=== PATIENT | female | born 1990 | race Caucasian/White ===

== ENCOUNTER 2024-05-10 19:30 | Inpatient (IN) | payer OTHER, SELFPAY ==
[2024-05-10 18:54] VITALS: BMI 37.9
[2024-05-10 19:25] LABS: ROM Internal Control Test YES-OK TO RESULT pt. (Internal QC)
[2024-05-10 19:27] LABS: ROM Patient Test POSITIVE (Negative); Record Kit Lot#, ROM+ K1866
[2024-05-10] MEDS: Lactated Ringers 1,000 ML 50 ML IV (19:45)
[2024-05-10 19:51] VITALS: BP 151/93; PULSE 90
--- NOTE | 2024-05-10 19:51 | PCM.HP.OB ---
HPI - General General Date of Admission: 05/10/24 Date of Service: 05/10/24 Chief Complaint: PPROM HPI Narrative JONO BRANDON, is a 33 1 para 0 at 35-6/7 weeks gestation presents complaining of spontaneous rupture membranes at 6 PM. Clear fluid. She denies any gross vaginal bleeding or leaking of fluid. She has had good movement. She denies any headache or visual changes. Some mild edema today. complicated to date by gestational diabetes class A2 she has been taking 10 units of insulin at night and blood sugars been well-controlled. She also has a history of anxiety and she is on Zoloft for this. Iron deficiency anemia has been treated with IV iron History of thrombocytosis and saw hematology for this, it was felt to be related to low iron Advanced maternal history Abnormal Pap smear with negative colposcopy biopsies during the Maternal obesity with BMI of 38 Allergies and medications reviewed. Social history: She denies any tobacco alcohol or drug use during the . PFSH [facility] Home Medications ?Medication ?Instructions ?Recorded ?Last Taken ?Type Lactobacillus acidophilus 10 100 mmu cells PO DAILY 05/10/24 05/09/24 22:00 History billion cell capsule (Probacap) 100 mmu cells ascorbate [id number]-fhr 1 ea PO DAILY 05/10/24 05/09/24 22:00 History 1,000 mg oral powder effervescent 1 ea pakt (Vit C(ascorb.calcium)(mv-mins)) aspirin 81 mg tablet,delayed 162 mg PO DAILY 05/10/24 05/09/24 22:00 History release 162 mg ferrous sulfate 325 mg (65 mg 325 mg PO DAILY 05/10/24 05/09/24 22:00 History iron) tablet (Feosol) 325 mg insulin NPH isoph U-100 human 100 10 unit subcut QPM 05/10/24 05/09/24 22:00 History unit/mL (3 mL) subcutaneous pen 10 units (Humulin N NPH U-100 Insulin KwikPen) vit no.95-ferrous 1 tab PO DAILY 05/10/24 05/09/24 21:00 History fumarate 28 mg-folic acid 800 mcg 1 TAB tablet ( Formula) sertraline 50 mg tablet (Zoloft) 50 mg PO DAILY 05/10/24 05/09/24 22:00 History 50 mg Allergy/AdvReac Type Severity Reaction Status Date / Time No Known Allergies Allergy Verified 05/10/24 18:44 NST FHR Rate Baby A Baseline: 150 Variability:: Moderate Accelerations:: 15 x 15 Decelerations:: None NST Reactive:: Yes FHR Category:: Category I Uterine Activity:: no regualr ctxs Vital Signs Vital Signs Vital Signs: Weight Weight: 100.3 kg Body Mass Index (BMI) 37.9 Physical Exam Narrative Cervix is 1.5 cm, 90% effaced, -2 station, gross rupture of membranes noted. Cervix is medium consistency and mid position patient has a history of a LEEP and does feel like she might have some scar tissue beyond of the cervix Const alert and no apparent distress General Appearance: cooperative HEENT normocephalic Resp normal respiratory effort Cardio regular rate GI soft to palpation GI Narrative: gravid, nontender, appropriate for gestational age Extremity no calf tenderness General Extremity: edema Skin no wounds Rashes: No rashes noted Psych activity/motor behavior normal Labs Labs Labs: No Data to Display Assessment & Plan (1) High risk , multigravida of advanced maternal age in third trimester: PLAN: High risk nullliparous patient with premature rupture of membranes. 36 weeks at midnight. Group B strep collected. Estimated weight is approximately 50th percentile by last ultrasound, pelvis clinically adequate to expect vaginal delivery. Will undergo Pitocin induction of labor. May use routine pain control measures as needed. Will monitor blood sugars. Will give half dose of insulin tonight at her normal time. (2) Maternal obesity syndrome in third trimester: (3) Nulliparity: (4) premature rupture of membranes (PPROM) delivered, current hospitalization: (5) 36 weeks gestation of : (6) Gestational diabetes requiring insulin:
[2024-05-10 20:17] LABS: Absolute Lymphocyte Count 4.92 X10^3/uL (0.83-4.51); Absolute Neutrophil Count 11.9 X10^3/uL (2.0-7.7); Basophil# 0.06 X10^3/uL; Basophil% 0.3 % (0-1); Eosinophil# 0.23 X10^3/uL; Eosinophils% 1.3 % (0-5); Hematocrit 38.9 % (37-47); Hemoglobin 13.9 g/dL (12.0-15.0); Lymphocyte # 4.92 X10^3/ul (0.83-4.51); Mean Corp Hgb Conc 35.7 g/dL (32-36); Mean Corpuscular Hgb 30.4 pg (27.0-32.0); Mean Corpuscular Volume 85.1 fL (81-99); Mean Platelet Vol. 10.1 fl (6.2-12.0); Monocyte# 1.06 X10^3/uL; Monocyte% 5.8 % (0-10); NRBC Flagged by Analyzer 0 % (0-5); Neutrophil # 11.86 X10^3/uL (2.7-7.7); Platelet Count 585 K/mm3 (150-450); RBC Distribution Width CV 17.3 % (11.6-14.6); RBC Distribution Width SD 51.8 fl (35.1-43.9); Red Blood Count 4.57 M/mm3 (4.2-5.4); White Blood Count 18.2 K/mm3 (4.4-11.0)
[2024-05-10 20:48] LABS: Bedside Glucose 82 mg/dL (74-106)
[2024-05-10 20:53] LABS: Syphilis Antibodies Non-reactive
[2024-05-10 21:15] LABS: AST(SGOT) 27 U/L (15-37); Alanine Aminotransfer ALT/SGPT 26 U/L (13-56); Creatinine, Serum 0.51 mg/dL (0.55-1.02); EST Glomerular Filtration Rate 146 mL/min (>60); Est Glom Filt Rate - Afr Amer 177 mL/min (>60); Estimated Creatinine Clearance 177.28 ml/min; Uric Acid 4.8 mg/dL (2.6-6.0)
[2024-05-10 21:39] LABS: Protein, Urine (Random) 88.3 mg/dL (<11.9); Protein:Creat Ratio 4205 mg/g CRE (0-200)
[2024-05-10 22:17] LABS: Bedside Glucose 74 mg/dL (74-106)
[2024-05-10] MEDS: Penicillin G Pot 5,000,000 UNITS in 0.9% Normal Saline (100mL MB+) 100 ML 150 UNITS IV (23:05)
[2024-05-10] MEDS: Insulin NPH Human 100 UNITS/ML PEN 6 UNITS SC (23:06)
[2024-05-10] MEDS: Oxytocin 15 Units/NS 250ml 15 UNITS/250 ML IV.SOLN 2 UNITS IV (23:06)
[2024-05-10 23:17] VITALS: BP 138/83; PULSE 91; RESP 16; TEMP 36.7; O2SAT 98; O2SAT 99
[2024-05-10 23:36] LABS: Group B Strep DNA By PCR Negative (Negative); Internal Control PASS; Probe Check PASS; Specimen Processing Control PASS
[2024-05-11] VITALS (101 sets, daily range): BP systolic 93–191; BP diastolic 50–86; PULSE 77–114; RESP 16–18; TEMP 36.3–37.9; O2SAT 81–100
[2024-05-11 00:43] LABS: Bedside Glucose 105 mg/dL (74-106)
[2024-05-11] MEDS: Penicillin G 3,000,000 Units 50 ML 100 UNITS IV ×2 (03:13→06:59)
[2024-05-11 03:40] LABS: Bedside Glucose 87 mg/dL (74-106)
[2024-05-11] MEDS: Lactated Ringers 1,000 ML 999 ML IV (03:45)
[2024-05-11] MEDS: fentaNYL-bupivacaine (epidural) 100 ML BAG EPIDURAL ×4 (04:43→18:03)
[2024-05-11 07:22] LABS: Bedside Glucose 84 mg/dL (74-106)
[2024-05-11] MEDS: Lactated Ringers 1,000 ML 200 ML IV ×2 (08:16→13:25)
--- NOTE | 2024-05-11 08:58 | PN_ITS ---
Progress Note Pt seen at bedside, resting comfortably with Epidural in place. VE: /-2. will continue to go up on pitocin at this time as [place] units are not adequate. FHR Cat 1.
[2024-05-11] MEDS: Sertraline 50 MG Tablet PO (09:01)
[2024-05-11 11:56] LABS: Bedside Glucose 69 mg/dL (74-106)
[2024-05-11] MEDS: Ondansetron 4 MG/2 ML Vial IV (12:11)
[2024-05-11] MEDS: 0.9% Saline Lock 10 ML Syringe IV (12:11)
[2024-05-11] MEDS: Oxytocin 15 Units/NS 250ml 15 UNITS/250 ML IV.SOLN 24 UNITS IV (13:34)
[2024-05-11 15:03] LABS: Bedside Glucose 68 mg/dL (74-106)
[2024-05-11 16:20] LABS: Bedside Glucose 61 mg/dL (74-106)
[2024-05-11 17:37] LABS: Bedside Glucose 59 mg/dL (74-106)
[2024-05-11 19:28] LABS: Bedside Glucose 64 mg/dL (74-106)
[2024-05-11] MEDS: Oxytocin 15 Units/NS 250ml 15 UNITS/250 ML IV.SOLN 334 UNITS IV (21:17)
--- NOTE | 2024-05-11 21:30 | OP.PCM_ITS ---
Vaginal Delivery Operative Information Date of Procedure: 05/11/24 Pre-Operative Diagnosis: GDMA2, PPROM, 36 weeks, Obesity in , AMA Post-Operative Diagnosis: same, live male Surgery / Procedure Performed: Vacuum Assisted Vaginal Delivery Type of Anesthesia: Epidural Drain: Ramos to straight drain Estimated Blood Loss: 50 Time of Delivery: 21:14 Findings Description of Procedure: Patient had been pushing with good maternal pushing efforts for approximately 3 hours and 15 minutes-maternal exhaustion. Patient was making minimal progress but during pushing was able to bring the head to +2 station but contractions were very spaced out approximately every 4 to 5 minutes on 24 M use of Pitocin. At this time I had discussed vacuum assisted delivery for maternal exhaustion. discussed risk benefits and alternatives. Patient and significant other agreed to proceed. At this time team was notified of vacuum set up and epidural has been found to be adequate this entire time. Ramos is draining properly. The kiwi was placed on the flexion point of the head set at 550 mmHg. During her next contraction with 1 steady gentle pull the head was delivered the vacuum was removed and the rest the was delivered without complication. The infant was placed on the mother's chest for immediate skin to skin. The was vigorous at time of delivery. Delayed cord clamping was performed. Once the cord was clamped and cut then Pitocin was started. Placent a was then delivered intact without complication. She had a small first-degree vaginal laceration that was repaired with 3-0 Rapide. Needle and lap count were correct. Vaginal sweep was negative. Presentation: Vertex Amniotic Membrane Rupture Type: Spontaneous Amniotic Fluid Description: Clear Placental Delivery Description: Expressed Placenta Disposition: [facility] Specimen(s) Removed: Placenta Cord Vessel Description: 3 Vessels Cord Entanglement: None Infant A Gender: Male (1 minute): 9 (5 minute): 9 Delayed Cord Clamping: Yes Post Vaginal Delivery Medications Given After Delivery: IV Pitocin Episiotomy Description: None Laceration: Vaginal Extension/lac and 1st degree Complication Complications: None
[2024-05-11 21:58] LABS: Bedside Glucose 66 mg/dL (74-106)
[2024-05-11] MEDS: Oxytocin 15 Units/NS 250ml 15 UNITS/250 ML IV.SOLN 83 UNITS IV (22:10)
[2024-05-11 22:24] LABS: Bedside Glucose 85 mg/dL (74-106)
[2024-05-11] MEDS: SimETHICONE 80 MG Chewable Tablet PO (22:59)
[2024-05-12] VITALS (8 sets, daily range): BP systolic 104–136; BP diastolic 57–87; PULSE 73–101; RESP 14–16; TEMP 36.1–36.5; O2SAT 93–100
[2024-05-12] MEDS: Ibuprofen 600 MG Tablet PO ×4 (00:30→19:01)
[2024-05-12 06:41] LABS: Bedside Glucose 99 mg/dL (74-106)
--- NOTE | 2024-05-12 08:52 | PCM.PN.CNM ---
Subjective Subjective Patient seen at bedside. Denies pain. Ambulating and voiding without difficulty. Formula feeding . Lochia decreasing. Objective Data Objective Data Vital Signs: Vital Signs Temp Pulse Resp BP Pulse Ox O2 Del Method 97.6 F L 89 16 104/57 L 97 Room Air 05/12/24 03:25 05/12/24 03:25 05/12/24 03:25 05/12/24 03:25 05/12/24 03:25 05/12/24 03:25 Oxygen Delivery Method Room Air Weight: 221 lb 1.978 oz Body Mass Index (BMI) 37.9 Intake & Output: Intake and Output for Last 24 Hours 05/10/24 05/11/24 05/12/24 23:59 23:59 23:59 Intake Total 105 / 106.8 4709.92 / 4709.92 250 / 250 Output Total 2 / 2 2652 / 2652 200 / 200 Balance 103 / 104.8 2057.92 / 2057.92 50 / 50 Lab / Micro Data 05/10/24 19:45 05/10/24 19:45 Labs: Laboratory Results - last 24 hr 05/11/24 11:12: POC Glucose 69 L 05/11/24 14:44: POC Glucose 68 L 05/11/24 16:02: POC Glucose 61 L 05/11/24 17:19: POC Glucose 59 L 05/11/24 18:52: POC Glucose 64 L 05/11/24 20:20: POC Glucose 66 L 05/11/24 22:05: POC Glucose 85 05/12/24 06:13: POC Glucose 99 ROS Eyes Eyes: Denies blurry vision, change in vision or spots in vision ENT HEENT: Denies dizziness or headache(s) Cardiovascular Cardiovascular: Denies abdominal pain, chest pain or dyspnea Respiratory/Chest Respiratory/Chest: Denies cough, dyspnea, shortness of breath at rest or shortness of breath with exertion Gastrointestinal Gastrointestinal: Denies abdominal pain, diarrhea or vomiting Genitourinary Genitourinary: Denies change in urinary stream, difficulty urinating or dysuria Musculoskeletal Musculoskeletal: Reports none Integumentary Integumentary: Denies rash Neurologic Neurologic: Denies dizziness, headache(s), memory loss or weakness Physical Exam Const alert and no apparent distress General Appearance: cooperative and comfortable Exam Limitations: no limitations HEENT normocephalic Eyes General Eye: normal appearance of both eyes Neck full ROM General: normal visual inspection Chest Chest: symmetrical chest wall rise Resp normal respiratory effort and normal air movement Effort and Inspection: symmetric chest movement Auscultation: clear to auscultation bilaterally Cardio regular rate and regular rhythm GI normal to inspection, nondistended, normoactive bowel sounds Back/Spine normal ROM Extremity full ROM and no calf tenderness General Extremity: normal exam except as noted Skin no rashes or lesions noted Neuro CN's II-XII intact bilaterally Psych mental status grossly normal Assessment & Plan (1) Maternal obesity syndrome in third trimester: (2) High risk , multigravida of advanced maternal age in third trimester: (3) (spontaneous vaginal delivery): PLAN: Plan PPD 1 Formula feeding Pain control Anticipate discharge home tomorrow
[2024-05-12] MEDS: Benzocaine/Lanolin/Aloe Vera 1 SPRAY EACH TOPICAL (09:45)
[2024-05-12] MEDS: Acetaminophen 500 MG Tablet 1000 MG PO ×3 (09:45→22:14)
[2024-05-12] MEDS: Sertraline 50 MG Tablet PO (09:45)
[2024-05-12] MEDS: Senna/Docusate Sodium 1 Tablet PO (09:46)
[2024-05-13] VITALS (9 sets, daily range): BP systolic 125–153; BP diastolic 71–86; PULSE 70–87; RESP 17–18; TEMP 36.3–37.1; O2SAT 96–100
[2024-05-13] MEDS: Ibuprofen 600 MG Tablet PO (04:05)
--- NOTE | 2024-05-13 07:08 | PCM.DC.SUM ---
Providers Date of Admission: 05/10/24 Primary Care Physician: Maris Vines, LOLA-C Reason For Visit: VAGINAL DEL Diagnosis Discharge Diagnosis (1) Maternal obesity syndrome in third trimester: Status: Acute Code(s): O99.213 - Obesity complicating , third trimester (2) High risk , multigravida of advanced maternal age in third trimester: Status: Acute Code(s): O09.523 - Supervision of elderly multigravida, third trimester (3) (spontaneous vaginal delivery): Status: Acute Code(s): O80 - Encounter for full-term uncomplicated delivery Plan PPD 1 Formula feeding Pain control Anticipate discharge home tomorrow Medications at Discharge Home Medications Lactobacillus acidophilus 10 billion cell capsule (Probacap) 100 mmu cells PO DAILY 05/10/24 ascorbate sfqwlzq-docbvgzg-soa 1,000 mg oral powder effervescent pakt (Vit C(ascorb.calcium)(mv-mins)) 1 ea PO DAILY 05/10/24 aspirin 81 mg tablet,delayed release 162 mg PO DAILY 05/10/24 ferrous sulfate 325 mg (65 mg iron) tablet (Feosol) 325 mg PO DAILY 05/10/24 insulin NPH isoph U-100 human 100 unit/mL (3 mL) subcutaneous pen (Humulin N NPH U-100 Insulin KwikPen) 10 unit subcut QPM 05/10/24 vit no.95-ferrous fumarate 28 mg-folic acid 800 mcg tablet ( Formula) 1 tab PO DAILY 05/10/24 sertraline 50 mg tablet (Zoloft) 50 mg PO DAILY 05/10/24 Hospital Course Operations None Procedures None Summary of Care Provided Minutes Spent on Discharge: 15 Hospital Course: Patient had Physical Exam Narrative Patient seen at bedside. Denies headache, vision changes, SOB, CP. with support. Weight / BMI Weight Weight: 221 lb 1.978 oz Body Mass Index (BMI) 37.9 ABG / Lab / Microbiology Data 05/10/24 19:45 05/10/24 19:45 D/C Instructions Discharge Diet: No restrictions May resume sexual activity in: 6-8 weeks Weight Bearing Status: Weight bearing as tolerated Call your doctor if you observe: Fever of 101 or Higher, Inability to urinate, Using more than 1 pad per hour, Shortness of breath, Chest pain, Calf discomfort and Uncontrolled pain Please Follow Up With: Dora Gage CNM When: 2 weeks virtual visit/ 6 weeks in office Meaningful Use Info Meaningful Use Meaningful Use Diagnoses (Choose all that apply): None applicable Ischemic Stroke Statin Dosing Therapy Reference: STATIN DOSE THERAPY REFERENCE: * Patients > 75 years receive moderate or high dose statin therapy. * Patients 75 years or YOUNGER should receive HIGH intensity statin dose unless contraindicated. You will be required to document reason for non-treatment if statin daily dose does not meet guidelines. HIGH DOSE STATIN THERAPY DAILY Atorvastatin > than or = to 40 mg Rosuvastatin > than or = to 20 mg Amlodipine + Atorvastatin > than or = to 2.5/40 mg Ezetimibe + Simvastatin 10/80 mg Simvastatin 80mg Discharge Plan Admission Admit Date/Time: 05/10/24 19:30 Primary Reason for Your Visit: Labor and Delivery Attending Provider: Lucille Anthony Primary Care Provider: Maris Vines SURGICAL SERVICES COORDINATOR Discharge Orders/Prescriptions Prescriptions: Continued PNV cmb#95-ferrous fumarate-FA [ Formula] 28 mg iron- 800 mcg tablet 1 tab PO DAILY Probacap 10 billion cell capsule 100 mmu cells PO DAILY sertraline [Zoloft] 50 mg tablet 50 mg PO DAILY ferrous sulfate [Feosol] 325 mg (65 mg iron) tablet 325 mg PO DAILY No Action Vit C(ascorb.calcium)(mv-mins) 1,000 mg powder effervescent in packet 1 ea PO DAILY aspirin 81 mg tablet,delayed release (DR/EC) 162 mg PO DAILY Humulin N NPH Insulin KwikPen 100 unit/mL (3 mL) insulin pen 10 unit subcut QPM Referrals / Follow Up: Maris Vines NP, SURGICAL SERVICES COORDINATOR-C [Primary Care Provider] - Disposition Disposition (needs filled in before D/C Order can be placed): Home, Self Care
[2024-05-13] MEDS: Sertraline 50 MG Tablet PO (10:14)
--- NOTE | 2024-05-13 14:29 | CASEMGMT ---
Social Work Labor and Delivery Unit Reason for referral: hx of anxiety History obtained from: patient and medical record SW met met with MOB. Introduced self and role. FOB present in room and agreeable to exit room for assessment upon this worker's request. MOB was sitting upright in chair, while baby was in the bassinet; appeared calm, happy, in no distress. MOB agreeable and open to speak with this worker. Medical History: MOB gestational diabetes, insulin dependent. Required IV iron at one time. Household Composition: First baby. Water broke at 36 weeks gestation. MOB reports smooth, easy delivery. MOB and FOB are legally as of July 2023. Moved to [place] together from [place], and moved into pool house of MITZY's father's house. 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 FOB receives 4 weeks of paternity leave. MOB denies any financial concerns. MITZY is formula feeding d/t personal preference. This worker educated to rewards programs of the formula brands and provided resources for assistance. Mental Health: MOB shared history of anxiety and panic attacks. Anxiety derived from MITZY's mother was diagnosed with Dementia in 2006, but started on a steady decline in 2017. MITZY shared as she turned 28 years old, was unhappy in her job, living in a big city, away from her family, not having healthy habits, or taking care of self, was being bullied, and had gone through a bad breakup, so she didn't plan on the future. SW explored comment further. MITZY noted more of a mid-life crisis, with no plans and feeling like a failure. SW inquired about SI. MOB confirmed she had thought about dying by suicide once or twice, as she was not forward thinking. MOB denied any further thoughts of completing, no plans, and no attempts. MOB denied family history of SI. Around this time is when she met her now , who changed her life. D/T MITZY's mother's decline in health, in July of 2020, MITZY moved back to hometow of [place], to be with own mother and admit her into [facility]. MITZY's mother in April 2022. MITZY explained moving back to [place] was a blessing in disguise as her mental health began to improve, she her , and is now able to raise her baby in a small town versus a big city. MITZY explained she was having panic/anxiety attacks very frequently and started in virtual therapy (out of an office in [employer]) in Aug 2021. MITZY continued with therapy sessions until mid- d/t to the frequency of doctor's appts and work schedule. MITZY started on Cymbalta in Dec 2021, however, the panic attacks did not significantly subside. This medication was prescribed by her PCP. When MITZY found out she was , her PCP weaned her off of Cymbalta and started her on Zoloft. MITZY reports Zoloft had a significant positive impact on her anxiety, lessened her anxiety attacks to 3 total during . MITZY shared the job she originally held, was very stressful, and the employees were not treated well, stating all of her coworkers were in therapy, and it took two years to get a promotion. However, since moving to [place], pt has gotten a new job, working from home, was promoted after 6 months, and has significantly less stress. MITZY reports overall, she no longer has mood swings, almost no anxiety on a daily basis, plans to remain on the Zoloft, and plans to restart therapy, as she takes that very seriously and finds great importance to it. MITZY reports to having a great outlook on life, forward thinking, excited to be a mother, is happy to be closer to siblings, and her father. Pt denies any thoughts/intents/plans of suicide. Support Systems: Active in therapy and on medication. 3 older siblings. Father. Friends. Coworkers. MOB denies any substance or alcohol use/history; safety in the home. Denies any SDOH concerns. Denies any agency or program involvement. Educated and provided resources to MOB for safe sleep, shaken baby syndrome, PPD/A, baby blues, counseling resources, help hotlines, HMG, and paternal PPD. SW notified RN there are no concerns for discharge. Janet Cardenas, BELTRAN CHAUDHRYW
== END 2024-05-13 14:05 | disposition home or self-care (01) | DRG 805 ==
LOC: WPOUT 05-11 08:59 → WP 05-11 09:00
PROVIDERS: Admitting Provider Obstetrics & Gynecology; PCP Nurse Practitioner Family; Referring Provider Obstetrics & Gynecology; Visit Provider Obstetrics & Gynecology
DX: O24.424 Gestational diabetes mellitus in childbirth, insulin controlled (principal); Z37.0 Single live birth; O60.14X0 Preterm labor third trimester with preterm delivery third trimester, not applicable or unspecified; O99.344 Other mental disorders complicating childbirth; R03.0 Elevated blood-pressure reading, without diagnosis of hypertension; D50.9 Iron deficiency anemia, unspecified; F41.9 Anxiety disorder, unspecified; O99.02 Anemia complicating childbirth; O26.03 Excessive weight gain in pregnancy, third trimester; O42.02 Full-term premature rupture of membranes, onset of labor within 24 hours of rupture; O70.0 First degree perineal laceration during delivery; O75.81 Maternal exhaustion complicating labor and delivery; Z3A.36 36 weeks gestation of pregnancy; Z79.899 Other long term (current) drug therapy; O99.892 Other specified diseases and conditions complicating childbirth
CPT/HCPCS: 59025; 59050; 82565; 82570; 82962; 84112; 84156; 84450; 84460; 84550; 85025; 86780; 86850; 86900; 86901; 87081; 87653; 99221; J7120; A4216; G0378; J2405

== ENCOUNTER 2024-05-19 17:40 | Outpatient (CLI) | payer OTHER, SELFPAY ==
[2024-05-19] VITALS (7 sets, daily range): BP systolic 127–147; BP diastolic 84–103; PULSE 72; RESP 16; TEMP 37; O2SAT 100; BMI 35.5
[2024-05-19 18:57] LABS: Hematocrit 39.7 % (37-47); Hemoglobin 13.9 g/dL (12.0-15.0); Mean Corpuscular Hgb 30.6 pg (27.0-32.0); Mean Corpuscular Volume 87.4 fL (81-99); POSITIVE COUNT YES; RBC Distribution Width CV 16.4 % (11.6-14.6); RBC Distribution Width SD 52.3 fl (35.1-43.9); Red Blood Count 4.54 M/mm3 (4.2-5.4); White Blood Count 12.7 K/mm3 (4.4-11.0)
--- NOTE | 2024-05-19 18:59 | NURSING ---
Pt here for R/O Pre-Eclampsia . Pt called physician because she had been monitoring her BP at home and had some elevated BP's. She states that some were in the 150's and one was over 160 systolic. Labs drawn per orders and serial BP's are in process.
[2024-05-19 19:07] LABS: Platelet Count 789 K/mm3 (150-450)
[2024-05-19 19:22] LABS: AST(SGOT) 22 U/L (15-37); Alanine Aminotransfer ALT/SGPT 37 U/L (13-56); Creatinine, Serum 0.68 mg/dL (0.55-1.02); EST Glomerular Filtration Rate 104 mL/min (>60); Est Glom Filt Rate - Afr Amer 126 mL/min (>60); Estimated Creatinine Clearance 128.37 ml/min; Uric Acid 6.8 mg/dL (2.6-6.0)
[2024-05-19 19:43] LABS: Scan Indicated on CBC? Y/N YES- FLAGS NOTED
--- NOTE | 2024-05-19 19:56 | NURSING ---
Dr Subramanian updated on most recent BP and labs including Uric Acid 6.8 and Platlets 789. Orders recieved to have patient increase labetalol dosage to 200mg BID and be seen in the office within the next two days. Call provider or return to hospital for any new symptoms or elevated BP over parameters.
--- NOTE | 2024-05-20 10:31 | OB.TRI.NOTE ---
HPI - General HPI Narrative JONO BRANDON, is a 33 F s/p on 05/11/24 who presents c/o elevated bp at home- 150-160/100s - pt reports no headaches, no visual changes. pt reports was started on labetalol at her post office visit on 05/14 - start labetalol 100 bid. pt offers no other concerns. PFSH PFSH Medical History (Updated 05/20/24 @ 10:[address] Lucille Anthony MD) Chlamydia HPV (human papilloma virus) infection Asthma Depression Anxiety Gestational diabetes Home Medications ?Medication ?Instructions ?Recorded ?Last Taken ?Type ascorbate [id number]-grqqzyie-wae 1 ea PO DAILY 05/10/24 05/09/24 22:00 History 1,000 mg oral powder effervescent 1 ea pakt (Vit C(ascorb.calcium)(mv-mins)) ferrous sulfate 325 mg (65 mg 325 mg PO DAILY 05/10/24 05/09/24 22:00 History iron) tablet (Feosol) 325 mg vit no.95-ferrous 1 tab PO DAILY 05/10/24 05/09/24 21:00 History fumarate 28 mg-folic acid 800 mcg 1 TAB tablet ( Formula) sertraline 50 mg tablet (Zoloft) 50 mg PO DAILY 05/10/24 05/09/24 22:00 History 50 mg labetalol 100 mg tablet 100 mg PO BID 05/19/24 Unknown History Allergy/AdvReac Type Severity Reaction Status Date / Time No Known Allergies Allergy Verified 05/19/24 18:57 Social History Smoking Status: Never smoker History Elective abortions Hx Para 0 Spontaneous abortions Hx # Term Pregnancies Ectopic pregnancies Hx # Pregnancies Multiple births # of living children Assessment & Plan (1) Pre-eclampsia, : PLAN: Plan s/p on 05/11/24 1) increased labetalol to 200mg bid- mild range pressures on L&D 2) PRE E labs reviewed- uric acid 6.8 3) follow up in office this week for bp check-
[2024-05-21 08:18] LABS: Pathologist Review Reviewed
== END 2024-05-19 20:18 | disposition home or self-care (01) ==
LOC: WPOUT 17:44 → WP 17:45
PROVIDERS: PCP Nurse Practitioner Family; Referring Provider Obstetrics & Gynecology; Visit Provider Obstetrics & Gynecology
DX: O14.95 Unspecified pre-eclampsia, complicating the puerperium (principal); J45.909 Unspecified asthma, uncomplicated; O99.53 Diseases of the respiratory system complicating the puerperium; Z79.899 Other long term (current) drug therapy
CPT/HCPCS: 36415; 82565; 84450; 84460; 84550; 85027; 99221; G0378